=== PATIENT | male | born 1970 | race Two or more races ===

== ENCOUNTER 2025-06-20 11:29 | Emergency (ER) | payer OTHER ==
[~2025-06-20] VITALS: Ht 175.3 cm; Wt 74.8 kg
[2025-06-20] MEDS ORDERED: DEXAMETHASONE SODIUM PHOSPHATE 4 MG/ML VIAL IM STA (11:48)
[2025-06-20] MEDS ORDERED: KETOROLAC TROMETHAMINE 30 MG VIAL IM STA (11:48)
[2025-06-20] MEDS ORDERED: ORPHENADRINE CITRATE 30 MG/ML AMPUL IM STA (11:48)
[2025-06-20] MEDS ORDERED: NORFLEX100MG PO (11:49)
[2025-06-20] MEDS ORDERED: NAPROXEN500 MG PO (11:49)
== END 2025-06-20 12:27 | disposition home or self-care (01) ==
LOC: ER 11:30
DX: M54.59 Other low back pain (principal); M79.604 Pain in right leg